=== PATIENT | male | born 1930 | race Caucasian/White ===

== ENCOUNTER → 2018-06-04 07:04 | Outpatient (CLI) | payer OTHER | END | disposition home or self-care (01) | LOC: LAB 07:04 | DX: I12.9 Hypertensive chronic kidney disease with stage 1 through stage 4 chronic kidney disease, or unspecified chronic kidney disease (principal); N18.4 Chronic kidney disease, stage 4 (severe); N39.0 Urinary tract infection, site not specified; R80.8 Other proteinuria ==

== ENCOUNTER 2019-02-26 09:38 | Emergency (ER) | payer OTHER ==
[~2019-02-26] VITALS: Ht 165.1 cm; Wt 59.0 kg
[2019-02-26] MEDS ORDERED: ASA81 MG (09:51)
[2019-02-26] MEDS ORDERED: NORVASC2.5 M1 (09:51)
== END 2019-02-26 16:02 | disposition home or self-care (01) ==
LOC: ER 09:38
DX: L03.116 Cellulitis of left lower limb (principal)

== ENCOUNTER 2020-03-24 09:53 | Outpatient (CLI) | payer OTHER ==
[~2020-03-24 09:53] MED LIST: ASA81 MG; NORVASC2.5 M1
== END 2020-03-24 09:54 | disposition home or self-care (01) ==
LOC: SONOGRAMA 09:53 → MAMO-SONO 10:15
PROVIDERS: ATTEND Internal Medicine Cardiovascular Disease
DX: E04.1 Nontoxic single thyroid nodule (principal)

== ENCOUNTER 2020-11-09 11:05 | Outpatient (CLI) | payer OTHER | END 2020-11-09 12:00 | disposition home or self-care (01) | LOC: RAD 11:05 | PROVIDERS: ATTEND Orthopaedic Surgery | DX: M25.572 Pain in left ankle and joints of left foot (principal); M79.672 Pain in left foot; I87.8 Other specified disorders of veins ==

== ENCOUNTER 2021-02-06 13:50 | Outpatient (CLI) | payer OTHER | END 2021-02-06 13:52 | disposition home or self-care (01) | LOC: NUCLEAR 13:50 | PROVIDERS: ATTEND Orthopaedic Surgery | DX: M81.0 Age-related osteoporosis without current pathological fracture (principal) ==